=== PATIENT | male | born 1980 | race Asian ===

== ENCOUNTER 2024-09-09 09:52 | Emergency (ER) | payer MEDICAID ==
[~2024-09-09] VITALS: Ht 170.2 cm; Wt 83.5 kg
--- NOTE | 2024-09-09 10:21 | ELECTROCARDIOGRAPH REPORT ---
[facility] Test Date: 2024-09-09 Test Time: 09:59:38 Pat Name: MALIHA SPEARS Department: EMERGENCY ROOM Room: Gender: M Resaw Feeder: CARLEY : 1980 Requested By: ELY FELTON Order Number: [id number] Reading MD: Dr. Jean Marie Serrato Measurements Intervals [place] Rate: 85 P: 33 PA: 197 QRS: 86 QRSD: 100 T: 0 QT: 359 QTc: 427 Interpretive Statements Sinus rhythm Probable left ventricular hypertrophy Inferior infarct, old ST elevation, consider anterior injury Electronically Signed On 09-09-2024 11:26:[address] Jean Marie Serrato Please click the below link to view image of tracing.
--- NOTE | 2024-09-09 10:23 | Physician Documentation ---
History of Present Illness ~ Chief Complaint: Chest Wall Pain Stated Complaint: CP Time Seen by MD: 10:08 Source: patient, family HPI Chief Complaint: Chest pain Caveat: Independent Historians: History of Present Illness: Patient is a 44-year-old man who comes in complaining of sharp left chest pain. Patient can point to where it hurts with one finger. It is not the entire left chest or a large area of the chest. Pain is described as sharp, three to 4/10. Pain has been constant for 3-4 days. Patient has had the pain for three months. Pain has gotten worse over the last week. No associated shortness breath, no nausea vomiting, no fever, no cough. Patient does not have any cardiac history. Review of systems: All systems were reviewed and are negative except for what is indicated in the history of present illness. Past Medical History: None Past Surgical History: None Social History: No tobacco use, no alcohol use, no drug use Medications: Reviewed as documented Nursing Notes Allergies: Reviewed as documented in Nursing Notes Medication Reconciliation Allergies: Coded Allergies: No Known Allergies (Unverified , 09/09/24) Review of Systems All Other Systems at this time: Reviewed and Negative ROS Patient denies any other acute symptoms other than above. All other systems are negative Physical Exam Vital Signs: RN Vital Signs have been reviewed: Yes, Temperature: 98.6, Source: Temporal, Heart Rate: 88, Respiratory Rate: 21, BP: 129/93, Pulse Oximetry: 97, Weight: 83.500 Oxygen Flow Rate: 0 Pulse Oximetry Reflects: adequate oxygenation Physical Exam General Appearance: No distress HEENT: Normal OP, moist oral mucosa, PERRL, EOMI Neck: supple, normal ROM, trachea midline Pulmonary: No respiratory distress, CTA, BS equal Cardiac: RRR, no murmur, rub or gallop, GI: nondistended, soft, nontender, normal bowel sounds, no guarding, no rebound Chest: Nontender, or early normal-appearing, no rash Extremities: normal ROM, no swelling, non-tender Skin: intact, dry, warm, no rashes Neuro: AAOx3, speech is clear, no focal motor weakness Psych: normal affect, good eye contact, no apparent hallucination, normal speech Progress Results/Orders Results/Orders Orders - ELY FELTON MD Electrocardiogram (09/09/24 10:17) Chest,Single View (09/09/24 10:17) Saline Lock (09/09/24 10:17) Monitor (09/09/24 10:17) Hs Troponin I W Calculations (09/09/24 13:17) Completed Orders - ELY FELTON MD Cbc/Diff (09/09/24 10:17) MG (09/09/24 10:17) Electrocardiogram (09/09/24 10:17) PBNP (09/09/24 10:17) Chest,Single View (09/09/24 10:17) Aspirin 81mg Chew Tablet (Aspirin 81mg C (09/09/24 10:20) BMP (09/09/24 10:17) Hs Troponin I W Calculations (09/09/24 10:17) Hs Troponin I W Calculations (09/09/24 12:17) Medications Received in ER Medications (Trade) Dose Ordered Sig/Renetta Route PRN Reason Start Time Stop Time Status Last Admin Dose Admin (aspirin 81MG chew tablet) 324 mg ONCE ONCE PO 09/09/24 10:20 09/09/24 10:21 DC 09/09/24 10:25 324 MG Vital Signs 09/09/24 09/09/24 09/09/24 09/09/24 10:07 10:18 11:08 12:12 Temp 98.6 98.6 98.6 Pulse 88 85 82 Resp 21 21 22 18 B/P (MAP) 129/93 109/82 (91) 123/96 (105) Pulse Ox 97 94 95 O2 Flow Rate 0 0 0 Laboratory Tests Test 09/09/24 10:32 09/09/24 12:14 White Blood Count 4.5 Red Blood Count 6.29 H Hemoglobin 18.6 *H Hematocrit 53.9 H Mean Corpuscular Volume 85.7 Mean Corpuscular Hemoglobin 29.5 Mean Corpuscular Hemoglobin Concent 34.4 Red Cell Distribution Width 13.3 Platelet Count 170 Mean Platelet Volume 8.1 Neutrophils (%) (Auto) 50.8 Lymphocytes (%) (Auto) 40.5 Monocytes (%) (Auto) 7.5 Eosinophils (%) (Auto) 0.5 Basophils (%) (Auto) 0.7 Neutrophils # (Auto) 2.3 Lymphocytes # (Auto) 1.8 Monocytes # (Auto) 0.3 Eosinophils # (Auto) 0.0 Basophils # (Auto) 0.0 CBC Comment Sodium Level 143 Potassium Level 4.3 Chloride Level 109 H Carbon Dioxide Level 28.0 Anion Gap 6 L Blood Urea Nitrogen 12 Creatinine 0.71 Estimated GFR/1.73 m2 > 90 BUN/Creatinine Ratio 16.9 Glucose Level 143 H Calcium Level 10.9 H Magnesium Level 2.0 Troponin I High Sensitivity 48 45 Pro-B-Type Natriuretic Peptide < 30 Albumin 3.8 Chemistry Comments Troponin I High Sens Percent Delta 6 Troponin I Hi Sens Absolute Change -3 Medical Decision Making Findings Differential diagnosis includes but is not limited to: Acute coronary syndrome, pulmonary embolus, pneumonia, pneumothorax, pericarditis, musculoskeletal pain EKG independent interpretation: Chest x-ray, single view, indication: Independent interpretation: Laboratory data independent interpretation: CBC: CMP: Toxicology: Serology: Urinalysis: Emergency department course/medical decision-making: Patient presents with atypical sharp left chest pain that is not consistent with acute coronary syndrome. However cardiac workup is done because of an EKG that is concerning for questionable ST-elevation. Consultation/communications: Departure Time of Disposition: 13:06 Disposition: HOME / SELF CARE / HOMELESS Impression: Primary Impression: Chest wall pain Additional Impression: Polycythemia Condition: Stable Discharge Instructions: Chest Wall Pain Additional Instructions: TAKE ADVIL AND TYLENOL FOR PAIN. FOLLOW UP WITH YOUR PRIMARY CARE DOCTOR AND REFERRAL TO A CORRECTIONAL CASEWORK SPECIALIST FOR A STRESS TEST. FOLLOW UP ALSO FOR YOUR ELEVATED HEMOGLOBIN - CALLED POLYCYTHEMIA. Education Educated: Patient Educated regarding: diagnosis, treatment, need for follow up ELY FELTON MD September 09, 2024 10:23
[2024-09-09] MEDS: aspirin 81mg tab.chew PO ONE (10:25)
[2024-09-09 10:41] LABS: BASOPHILS % (AUTO) 0.7 % (0-1); EOSINOPHILS % (AUTO) 0.5 % (0-6); HEMATOCRIT 53.9 % (42.0-52.0); LYMPHOCYTES # (AUTO) 1.8 X10'3 (1.1-4.8); LYMPHOCYTES % (AUTO) 40.5 % (21-51); MEAN CORPUSCULAR HEMOGLOBIN 29.5 PG (27.0-31.0); MEAN CORPUSCULAR HGB CONC 34.4 g/dL (33.0-36.5); MEAN CORPUSCULAR VOLUME 85.7 FL (78-98); MEAN PLATELET VOLUME 8.1 FL (7.4-10.4); MONOCYTES # (AUTO) 0.3 X10'3 (0-0.9); MONOCYTES % (AUTO) 7.5 % (2-12); NEUTROPHILS # (AUTO) 2.3 X10'3 (1.8-7.7); NEUTROPHILS % (AUTO) 50.8 % (42-75); PLATELET COUNT 170 X10'3 (140-440); RED BLOOD COUNT 6.29 X10'6 (4.70-6.10); RED CELL DISTRIBUTION WIDTH 13.3 % (11.5-14.5); WHITE BLOOD COUNT 4.5 X10'3 (4.5-11.0)
[2024-09-09 10:53] LABS: HEMOGLOBIN 18.6 g/dl (14.0-17.9)
--- NOTE | 2024-09-09 10:58 | RADIOLOGY REPORT ---
CHEST RADIOGRAPH Indication: CP Technique: Single frontal view of the chest was obtained Comparison: None FINDINGS: Lines and Tubes: None Lungs: No focal consolidation. Pleura: No effusion. No pneumothorax. Cardiomediastinal contours: Unremarkable Bones: No acute osseous abnormality. IMPRESSION: No acute cardiopulmonary disease.
[2024-09-09 11:02] LABS: ALBUMIN 3.8 G/DL (3.4-5.0); ANION GAP 6 (8-16); BLOOD UREA NITROGEN 12 MG/DL (7-18); BUN/CREATININE RATIO 16.9 (10.0-20.0); CALCIUM 10.9 MG/DL (8.5-10.1); CHLORIDE 109 MMOL/L (99-107); CREATININE 0.71 MG/DL (0.60-1.10); GLUCOSE 143 MG/DL (70-104); POTASSIUM 4.3 MMOL/L (3.5-5.1); PRO BRAIN NATRIURETIC PEPTIDE < 30 PG/ML (0-125); SODIUM 143 MMOL/L (135-145); eCRCL 127 ML/MIN; eGFR > 90 ML/MIN
[2024-09-09 12:12] VITALS: TEMP 98.6
[2024-09-09 13:27] VITALS: BP 118/79; PULSE 82; RESP 14; O2SAT 96
== END 2024-09-09 13:30 | disposition home or self-care (01) ==
LOC: ER 09:54
DX: R07.89 Other chest pain (principal); D75.1 Secondary polycythemia
CPT/HCPCS: 36415; 71045; 80048; 83735; 83880; 84484; 85025; 93005; 99285

== ENCOUNTER 2024-12-17 11:25 | Emergency (ER) | payer MEDICAID, OTHER ==
[~2024-12-17] VITALS: Ht 170.2 cm; Wt 83.3 kg
[2024-12-17 11:29] VITALS: TEMP 97.3
--- NOTE | 2024-12-17 11:48 | Physician Documentation ---
History of Present Illness ~ Chief Complaint: Mechanical Fall Stated Complaint: FALL Time Seen by MD: 12:12 OK to notify your PCP?: Yes Source: patient Mode of Arrival: POV Exam Limitations: no limitations HPI 44-year-old male presents after tripping and falling over a tree stump this past Thursday. He denies any loss of consciousness or head strike or blood thinner use. When he landed, he landed on his right side in his having some right-sided sharp rib pain, worse with a deep breath. Has not taken any medication prior to arrival for his pain. Tetanus within 5 Years?: No Medication Reconciliation Allergies: Coded Allergies: No Known Allergies (Unverified , 12/17/24) Review of Systems All Other Systems at this time: Reviewed and Negative Physical Exam Vital Signs: Temperature: 97.3, Source: Oral, Heart Rate: 72, Respiratory Rate: 16, BP: 117/87, Pulse Oximetry: 97, Weight: 83.300 Oxygen Flow Rate: 0 Pulse Oximetry Reflects: adequate oxygenation Physical Exam General: Alert, no distress. HEENT: No injection, moist mucous membranes. Neck: Full range of motion. Respiratory: No respiratory distress, equal chest rise and fall. Bilateral lungs clear. Chest: No accessory muscle use. Tenderness to palpation of right lateral portion of 5th and 6th rib, there was no crepitus or flail chest. Cardiovascular: Regular rate and rhythm. Gastrointestinal: Nondistended. Extremities: Normal range of motion, no deformity. Neurologic: Oriented x4. Psychiatric: Normal mood and affect. Skin: Normal color, warm and dry. Progress Results/Orders Reviewed/noted all lab results: Yes Results/Orders Orders - PARISA MCKAY MANAGER BILLING Naproxen Tablet (Naprosyn Tablet) (12/17/24 13:40) Lidocaine 5% Patch (Lidoderm 5% Patch) (12/17/24 13:40) Acetaminophen 325mg Tablet (Tylenol Tabl (12/17/24 13:40) Vital Signs 12/17/24 12/17/24 11:29 13:15 Temp 97.3 Pulse 72 70 Resp 16 21 B/P (MAP) 117/87 149/72 (97) Pulse Ox 97 96 O2 Flow Rate 0 EKG/XRAY/CT/US/VASC/MRI Chest X-Ray : Additional Comments Chest x-ray: as interpreted by me; no large effusion, no large infiltrate, normal mediastinum. Medical Decision Making Additional info obtained from: old records Findings 44-year-old male with a mechanical fall when he landed on his right ribcage. He does have some point tenderness to palpation. There is no crepitus or instability of the chest wall. No flail chest. Lung sounds are clear. His chest x-ray was negative for any obvious rib fracture or lung abnormalities. I gave him some Tylenol and naproxen and lidocaine patch while here in the department for pain and then sent lidocaine patches to his pharmacy. They plan on picking up Tylenol and ibuprofen on the way home. We discussed that he needs to take deep breaths to prevent further atelectasis, in the that this can take 6-8 weeks to fully resolve. He agrees with the plan. Differential Dx:Considerations: Include: Fracture(s), Pneumothorax, Pulmonary contusion, Foreign body(s), Hematoma(s) Departure Disposition: 01 HOME / SELF CARE / HOMELESS Impression: Primary Impression: Contusion of rib on right side Condition: Stable Discharge Instructions: Rib Contusion Additional Instructions: Please follow up with her primary care provider within the next week and return back here for any new or worsening symptoms. As discussed please take deep breaths 10 times per hour to prevent atelectasis. Rib contusions can take 6-8 weeks to resolve. Referrals: NO PRIMARY CARE PROVIDER (PCP) Prescriptions Lidocaine (Lidocaine) 5 % Adh..patch 1 PATCH TOP DAILY for 30 Days, #30 PATCH 0 Refills Prov: PARISA MCKAY 12/17/24 Education Educated: Patient Educated regarding: diagnosis, treatment, prognosis, need for follow up Additional Comment Medical Screen Exam This patient recieved a medical screening examination. After reviewing the individual's medical complaints with presenting symptoms and performing an appropriate physical examination, it was determined that no immediate life- threatening emergency medical condition is present. This individual is also not a women having contractions. Signature Scribe Signature: . Attestation: Scribed for Parisa Mckay by Parisa Call NP . 12/17/24 13:46 Parts of this note were created using [employer] voice recognition software program. While efforts were made to correct any mistakes made by this voice recognition software program, nonsensical phrases may remain in this note. In addition, there may be errors and syntax, grammar, content and spelling. PARISA MCKAY [facility] Dec 17, 2024 11:47
--- NOTE | 2024-12-17 13:04 | RADIOLOGY REPORT ---
DI CHEST,SINGLE VIEW, HISTORY: CP COMPARISON: DI CHEST,SINGLE VIEW on DOS: 09/09/24 DI CHEST,SINGLE VIEW on DOS: 09/09/24 TECHNICAL DATA: 1 view of the chest was obtained. FINDINGS: Lines and tubes: None Cardiomediastinal silhouette: normal Pulmonary vasculature: normal Lung expansion: Left basilar subsegmental atelectasis. Lung airspace: normal Lung interstitium: normal Pleura: normal Pneumothorax: no Bones: Unremarkable Other: no IMPRESSION: Left basilar subsegmental atelectasis.
[2024-12-17] MEDS ORDERED: LIDO700A47 TOP (13:41)
[2024-12-17 14:01] VITALS: BP 146/74; PULSE 84; RESP 16; O2SAT 98
== END 2024-12-17 14:02 | disposition home or self-care (01) ==
LOC: ER 11:25
DX: S20.211A Contusion of right front wall of thorax, initial encounter (principal); W01.0XXA Fall on same level from slipping, tripping and stumbling without subsequent striking against object, initial encounter; Y93.89 Activity, other specified; Y92.89 Other specified places as the place of occurrence of the external cause; Y99.8 Other external cause status
CPT/HCPCS: 71045; 99284